=== PATIENT | male | born 2000 | race Caucasian/White ===

== ENCOUNTER 2020-05-15 13:11 | Emergency (ER) | payer OTHER ==
[2020-05-15 13:18] VITALS: BP 109/50
--- NOTE | 2020-05-15 13:39 | ED Physician Documentation ---
History of Present Illness - Stated complaint Stated Complaint: R EYE IRRITATION - Chief complaint Chief Complaint: Heent - History obtained from History obtained from: Patient - History of Present Illness Timing: Today Pain level max: 0 Pain level now: 0 - Additonal information Additional information: 20-year-old male presents to the emergency department stating he noted yellow eye discharge this morning from the right eye. There was also redness. Concerned about potential pinkeye. No fevers. No chills. No rhinorrhea or congestion. No sore throat. Nothing makes it better or worse. No trauma. Does not wear contacts. Review of Systems Constitutional: denies: Fever, Chills Eyes: denies: Loss of vision, Decreased vision, Photophobia Respiratory: denies: Cough GI: denies: Vomiting PD PAST MEDICAL HISTORY - Past Medical History Past Medical History: No - Past Surgical History Past Surgical History: No - Present Medications Home Medications: Ambulatory Orders Medication Instructions Recorded Confirmed Polymyxin B/Trimeth Ophth Drop 1 drops RIGHTEYE Q3H 7 Days #1 05/15/20 [Polytrim Ophth Drops] bottle - Allergies Allergies/Adverse Reactions: Allergies Allergy/AdvReac Type Severity Reaction Status Date / Time No Known Drug Allergies Allergy Verified 05/15/20 13:15 - Social History Does the pt smoke?: No Smoking Status: Never smoker Does the pt drink ETOH?: No Does the pt have substance abuse?: No - Immunizations Immunizations are current?: Yes - POLST Patient has POLST: No PD ED PE NORMAL - Vitals Vital signs reviewed: Yes - General General: Alert and oriented X 3, No acute distress - HEENT HEENT: Moist mucous membranes, Other (mild conjunctival injection and slight yellow drainage from the right eye. No evidence of foreign body. Eyelids everted.) - Neck Neck: Supple, no meningeal sign - Derm Derm: Warm and dry - Neuro Neuro: Alert and oriented X 3 Results - Vitals Vitals: Vital Signs - 24 hr 05/15/20 13:15 Temperature 36.5 C Heart Rate 53 L Respiratory 16 Rate Blood Pressure 109/50 L O2 Saturation 99 Oxygen O2 Source Room air PD MEDICAL DECISION MAKING - ED course Complexity details: considered differential, d/w patient ED course: 20-year-old male with right eye bacterial conjunctivitis. Will place on Poly trim ophthalmic. We will have him follow-up with his doctor for further care. No evidence of foreign body. Does not wear contacts. No evidence of ulceration. Patient counseled regarding signs and symptoms for which I believe and urgent re-evaluation would be necessary. Patient with good understanding of and agreement to plan and is comfortable going home at this time This document was made in part using voice recognition software. While efforts are made to proofread this document, sound alike and grammatical errors may occur. Departure - Departure Disposition: 01 Home, Self Care Clinical Impression: Bacterial conjunctivitis of right eye Condition: Good Instructions: ED Conjunctivitis Bacterial Follow-Up: your,doctor in 1 week for recheck [Other] Prescriptions: Polymyxin B/Trimeth Ophth Drop [Polytrim Ophth Drops] 1 drops RIGHTEYE Q3H 7 Days #1 bottle Comments: Use the antibiotic drops as prescribed. Return if you worsen. Follow-up with your doctor next week for repeat evaluation. Forms: Activity restrictions
== END 2020-05-15 14:00 | disposition home or self-care (01) ==
LOC: ED 13:11
DX: H10.9 Unspecified conjunctivitis (principal)
CPT/HCPCS: 99282; 99284

== ENCOUNTER 2023-09-23 06:59 | Outpatient (CLI) | payer OTHER ==
--- NOTE | 2023-09-23 10:38 | MRI Report ---
PROCEDURE: Lumbar Spine WO INDICATIONS: LUMBAR RADICULOPATHY TECHNIQUE: Noncontrast sagittal T1 spin echo and T2 fast echo, sagittal STIR, axial T1 and T2 fast spin echo thr ough the lumbar spine. In cases with scoliosis, additional coronal T2 fast spin echo may be performe d. COMPARISON: None. FINDINGS: Image quality: Excellent. Alignment and Curvature: There is normal bony alignment. Bone Marrow: There is a vague subtle area of increased T2 signal present in the right process/pedicle region of L5 which is isointense on T1-weighted imaging. It is bright on T2-weighted and inversion r ecovery imaging. Of uncertain etiology, potentially representing an atypical hemangioma. Also possibl e is a very subtle unilateral pars defect with some bony edema. No other bone marrow signal abnormali ties are identified. Reference image 4 of sagittal series 2, 3, and 4. No acute vertebral body compre ssion fractures. Spinal Cord: Conus medullaris terminates at the T12 level. Visualized cord demonstrates normal sign al and size. Paraspinous Soft Tissues: No paravertebral masses. T12-L1: Normal in appearance. L1-L2: Normal in appearance. L2-L3: Normal in appearance. L3-L4: Normal in appearance. L4-L5: Normal in appearance. L5-S1: Mild disc bulge. No canal stenosis or foraminal stenosis. IMPRESSION: 1. No canal stenosis or foraminal stenosis. 2. Indeterminate area of signal abnormality in the right pars/posterior pedicle region of L5. Conside r atypical hemangioma is a possibility. Consider nondisplaced very subtle pars defect. Comment: Limited CT through the L5 vertebral body may be helpful. Reviewed by: Osbaldo Tejeda MD on 09/23/2023 10:36 AM PST Approved by: Osbaldo Tejeda MD on 09/23/2023 10:36 AM PST Station ID: [id number]
== END 2023-09-23 07:00 | disposition home or self-care (01) ==
LOC: DI 06:59
DX: M51.37 Other intervertebral disc degeneration, lumbosacral region (principal)